=== PATIENT | male | born 1980 | race Caucasian/White ===

== ENCOUNTER 2018-11-18 21:25 | Emergency (ER) | payer OTHER, SELFPAY ==
[2018-11-18 21:14] VITALS: BP 149/88; PULSE 148; RESP 18; TEMP 36.4; O2SAT 94
--- NOTE | 2018-11-18 21:30 | DI.RAD.S_ITS ---
PROCEDURE: XR CHEST 1V INDICATIONS: status post CPR TECHNIQUE: One view of the chest was acquired. COMPARISON: None. FINDINGS: Surgical changes and devices: None. Lungs and pleura: Lungs are clear. No pleural effusions or pneumothorax. Mediastinum: Mediastinal contours appear normal. Heart size is normal. Bones and chest wall: No suspicious bony lesions. Overlying soft tissues appear unremarkable. IMPRESSION: No acute process. Dictated by: Carolyn Oneal M.D. on 11/18/2018 at 21:58 Approved by: Carolyn Oneal M.D. on 11/18/2018 at 21:58
--- NOTE | 2018-11-18 21:31 | ED.CPR ---
HPI - CPR General Chief Complaint: Cardiac Arrest/CPR Stated Complaint: Overdose Time Seen by Provider: 11/18/18 21:29 Source: patient and EMS Mode of arrival: EMS Limitations: no limitations History of Present Illness HPI narrative: 38-year-old male, daily smoker presents by EMS for evaluation of accidental overdose. Patient admits to snorting what he thought were Vicodin earlier and was found unresponsive and apneic. Patient proceeded to become pulseless and had bystander CPR briefly. He was given Narcan and nearly immediately woke up. Patient denies any other drugs or alcohol. He denies any cardiac history. He is awake, alert and oriented EN route. He was administered 1 extra dose of Narcan by EMS. Patient denies any suicidal or homicidal ideation MD complaint: found unresponsive and stopped breathing Timing confirmed by: other Place: home Bystander CPR performed: Yes AED applied by bystander/scenic artist: No Shock advised: No Initial findings in the field: unresponsive ROSC in the field: Yes Associated injuries: No Related Data Home Medications Medication Instructions Recorded Confirmed No Known Home Medications 11/18/18 11/18/18 Allergies Allergy/AdvReac Type Severity Reaction Status Date / Time Penicillins Allergy Unknown Verified 11/18/18 21:39 Review of Systems Constitutional Denies chills, Denies fever(s), Denies lethargy and Denies weakness Eyes Denies change in vision, Denies eye discharge, Denies irritation and Denies loss of vision ENT Ears, Nose, Mouth, and Throat: Denies change in voice, Denies neck pain and Denies sore throat Cardiovascular Denies chest pain, Denies irregular heart rhythm, Denies lightheadedness, Denies palpitations, Denies dyspnea, Denies dyspnea on exertion and Denies orthopnea Respiratory Denies cough, Denies dyspnea, Denies dyspnea on exertion and Denies wheezing Gastrointestinal Gastrointestinal: Denies abdominal pain, Denies change in bowel habits, Denies diarrhea, Denies nausea and Denies vomiting Genitourinary Denies hematuria, Denies flank pain, Denies urinary incontinence and Denies urinary urgency Musculoskeletal Denies neck pain Integumentary/Breasts Denies pruritus, Denies erythema, Denies rash and Denies wounds Neurologic Denies confusion, Denies loss of vision and Denies weakness Psychiatric Denies anxiety, Denies confusion, Denies depression, Denies homicidal ideation and Denies suicidal ideation Endocrine Denies palpitations Hematologic/Lymphatic Denies easy bruising Allergic/Immunologic Denies wheezing Exam Narrative Exam Narrative: GENERAL: 38-year-old male, tearful and obviously upset. Otherwise in no obvious distress HEAD: Atraumatic. Normocephalic. No temporal or scalp tenderness. EYES: Pupils equal round and reactive. Extraocular motions intact. No scleral icterus. No injection or drainage. ENT: Nose without bleeding, purulent drainage or septal hematoma. Throat without erythema, tonsillar hypertrophy or exudate. Uvula midline. Airway patent. NECK: Trachea midline. No JVD or lymphadenopathy. Supple, nontender, no meningeal signs. CARDIOVASCULAR: Regular rate and rhythm without murmurs, gallops, or rubs. Mild reproducible mid chest pain RESPIRATORY: Clear to auscultation. Breath sounds equal bilaterally. No wheezes, rales, or rhonchi. GASTROINTESTINAL: Abdomen soft, non-tender, nondistended. No hepato-splenomegaly, or palpable masses. No guarding. EXTREMITIES: No clubbing, cyanosis, or edema. No joint tenderness, effusion, or edema noted. BACK: Nontender without deformity or crepitance. No flank tenderness. NEURO: AOx3. SKIN: No rash or erythema. Initial Vital Signs Initial Vital Signs: Vital Signs Temperature 97.6 F 11/18/18 21:14 Pulse Rate 148 H 11/18/18 21:14 Respiratory Rate 18 11/18/18 21:14 Blood Pressure 149/88 H 11/18/18 21:14 Pulse Oximetry 94 11/18/18 21:14 [facility] Social History Smoking Status: Current every day smoker Social History Smoking Status: Current every day smoker Course Orders Ordered: ED Orders 11/18/18 21:27 Acetaminophen Stat Complete Blood Count AUTO DIFF Stat Comprehensive Metabolic Panel Stat Ethanol (ETOH) Stat Hepatic (Liver) Panel Stat Salicylate Stat Troponin & CK Cardiac Panel Stat 11/18/18 21:30 XR chest 1V Stat 11/18/18 21:52 EKG-12 Lead Stat 11/19/18 00:30 Urinalysis Sreen (Dip Only) Stat Urine Drug Screen, Rapid Stat Discontinued Medications Sodium Chloride (Normal Saline 0.9%) 1,000 mls @ 150 mls/hr IV CONT MOON Last Infusion: 11/19/18 02:00 Dose: 0 mls/hr Admin: 11/18/18 22:01 Dose: 150 mls/hr Ondansetron HCl (Zofran) 4 mg IV NOW ONE Stop: 11/18/18 22:00 Last Admin: 11/18/18 22:01 Dose: 4 mg Reevaluation(s) Reevaluation #1: Patient is here for multiple hours and no repeat doses of Narcan needed. He is awake, alert and oriented. He is remorseful and denies any suicidal ideation Vital Signs - 8 hr 11/18/18 21:46 11/18/18 22:26 11/18/18 23:29 Pulse Rate 90 89 75 Respiratory Rate 18 16 31 H Blood Pressure [Left Arm] 149/88 H 120/77 119/78 Pulse Oximetry 96 96 98 11/19/18 00:25 11/19/18 01:30 Pulse Rate 68 73 Respiratory Rate 16 15 Blood Pressure [Left Arm] 120/78 118/72 Pulse Oximetry 100 99 MDM - Cardiac Arrest/CPR Lab Data Result diagrams: 11/18/18 21:27 11/18/18 21:27 Lab Results 11/18/18 11/18/18 11/19/18 Range/Units 21:27 21:27 00:30 WBC 9.0 (4.5-11.0) X10^3/uL RBC 5.23 (4.5-5.9) X10^6/uL Hgb 16.8 (13.5-17.5) g/dL Hct 47.9 (41-53) % MCV 91.6 (80-100) fL MCH 32.2 (26-34) PG MCHC 35.1 (30-36) % RDW 12.7 (11.6-14.8) % Plt Count 248 (150-400) X10^3/uL Neut % (Auto) 35.7 L (50-75) % Lymph % (Auto) 55.4 H (25-40) % Gray % (Auto) 6.7 (3-14) % Eos % (Auto) 1.7 L (2-4) % Baso % (Auto) 0.5 (0-2) % Neut # (Auto) 3200 (3552-9123) /uL Lymph # (Auto) 5000 H (3475-4757) /uL Gray # (Auto) 600 (0-900) /uL Eos # (Auto) 200 (0-450) /uL Baso # (Auto) 0 (0-100) /uL Sodium 141 (137-145) mmol/L Potassium 4.0 (3.4-5.1) mmol/L Chloride 104 (98-107) mmol/L Carbon Dioxide 20 L (22-32) mmol/L BUN 18 (9-20) mg/dL Creatinine 1.10 (0.66-1.25) mg/dL Estimated GFR > 60.0 (>60) mL/min BUN/Creatinine Ratio 16.4 (6-22) Glucose 170 H (70-100) mg/dL Calcium 8.9 (8.4-10.2) mg/dL Total Bilirubin 0.5 (0.2-1.3) mg/dL Conjugated Bilirubin 0.0 (0.0-0.3) md/dL Unconjugated Bilirubin 0.2 (0.0-1.1) mg/dL AST 51 (17-59) IU/L ALT 52 (21-72) IU/L Alkaline Phosphatase 54 (38-126) U/L Total Creatine Kinase 43 L (55-170) U/L CK-MB (CK-2) TNP CK-MB (CK-2) Rel Index TNP Troponin I < 0.012 (0.01-0.034) ng/mL Total Protein 7.6 (6.3-8.2) g/dL Albumin 4.6 (3.5-5.0) g/dL Globulin 3.0 (1.7-4.1) g/dL Albumin/Globulin Ratio 1.5 (1.0-2.8) Urine Color Urine Appearance Urine pH (4.5-8.0) Ur Specific [place] (1.000-1.035) Urine Protein (Negative) Urine Glucose (UA) (Negative) g/dL Urine Ketones (NEGATIVE) Urine Occult Blood (Negative) Urine Nitrate (Negative) Urine Bilirubin (NEGATIVE) Urine Urobilinogen (0.2) E.U./dL Ur Leukocyte Esterase (NEGATIVE) Salicylates < 1.0 (<20) mg/dL Urine Opiates Screen Negative (Negative) Ur Oxycodone Screen Negative (Negative) Urine Methadone Screen Negative (Negative) Acetaminophen < 10 L (10-30) ug/mL Ur Barbiturates Screen Negative (Negative) U Tricyclic Antidepress Negative (Negative) Ur Phencyclidine Scrn Negative (Negative) Ur Amphetamines Screen Negative (Negative) U Methamphetamines Scrn Negative (Negative) Ur MDMA Scrn (Ecstasy) Negative (Negative) U Benzodiazepines Scrn Negative (Negative) Urine Cocaine Screen Negative (Negative) U Marijuana (THC) Screen Negative (Negative) Ethyl Alcohol 47 mg/dL 11/19/18 Range/Units 00:30 WBC (4.5-11.0) X10^3/uL RBC (4.5-5.9) X10^6/uL Hgb (13.5-17.5) g/dL Hct (41-53) % MCV (80-100) fL MCH (26-34) PG MCHC (30-36) % RDW (11.6-14.8) % Plt Count (150-400) X10^3/uL Neut % (Auto) (50-75) % Lymph % (Auto) (25-40) % Gray % (Auto) (3-14) % Eos % (Auto) (2-4) % Baso % (Auto) (0-2) % Neut # (Auto) (3198-1224) /uL Lymph # (Auto) (1799-6273) /uL Gray # (Auto) (0-900) /uL Eos # (Auto) (0-450) /uL Baso # (Auto) (0-100) /uL Sodium (137-145) mmol/L Potassium (3.4-5.1) mmol/L Chloride (98-107) mmol/L Carbon Dioxide (22-32) mmol/L BUN (9-20) mg/dL Creatinine (0.66-1.25) mg/dL Estimated GFR (>60) mL/min BUN/Creatinine Ratio (6-22) Glucose (70-100) mg/dL Calcium (8.4-10.2) mg/dL Total Bilirubin (0.2-1.3) mg/dL Conjugated Bilirubin (0.0-0.3) md/dL Unconjugated Bilirubin (0.0-1.1) mg/dL AST (17-59) IU/L ALT (21-72) IU/L Alkaline Phosphatase (38-126) U/L Total Creatine Kinase (55-170) U/L CK-MB (CK-2) CK-MB (CK-2) Rel Index Troponin I (0.01-0.034) ng/mL Total Protein (6.3-8.2) g/dL Albumin (3.5-5.0) g/dL Globulin (1.7-4.1) g/dL Albumin/Globulin Ratio (1.0-2.8) Urine Color Yellow Urine Appearance Clear Urine pH 5.0 (4.5-8.0) Ur Specific [place] >=1.030 H (1.000-1.035) Urine Protein 2+ H (Negative) Urine Glucose (UA) Negative (Negative) g/dL Urine Ketones Negative (NEGATIVE) Urine Occult Blood 1+ H (Negative) Urine Nitrate Negative (Negative) Urine Bilirubin Negative (NEGATIVE) Urine Urobilinogen 0.2 (0.2) E.U./dL Ur Leukocyte Esterase Negative (NEGATIVE) Salicylates (<20) mg/dL Urine Opiates Screen (Negative) Ur Oxycodone Screen (Negative) Urine Methadone Screen (Negative) Acetaminophen (10-30) ug/mL Ur Barbiturates Screen (Negative) U Tricyclic Antidepress (Negative) Ur Phencyclidine Scrn (Negative) Ur Amphetamines Screen (Negative) U Methamphetamines Scrn (Negative) Ur MDMA Scrn (Ecstasy) (Negative) U Benzodiazepines Scrn (Negative) Urine Cocaine Screen (Negative) U Marijuana (THC) Screen (Negative) Ethyl Alcohol mg/dL ECG Data Attestation: I personally reviewed and interpreted this ECG as follows: Prior ECG tracings: not available for review MDM Narrative Medical decision making narrative: Multiple etiologies for patient's symptoms considered including: [Accidental overdose by opioid. Rapid drug screen was negative but it is certainly likely that the patient obtained non pharmaceutical, perhaps fentanyl, medication] Patient's symptoms improved or duration of stay with above-stated therapies. Findings and discharge diagnosis discussed with patient/family followed by verbalization of understanding Return precautions discussed with patient/family whom verbalize understanding. Discharge Plan Departure Patient Disposition: Home Clinical Impression: Opioid overdose Discharge Date/Time: 11/19/18 02:00 Interventions: ED Discharge Assessment Last Done: 11/19/18 01:55 Instructions: DI for Prescription Opioid Use Activity Restrictions/Additional Instructions: *You have been diagnosed with [ accidental opioid overdose ] *What to do: * continue to take medications as directed *Follow up with your primary care provider in 2-3 days, call for an appointment. Let them know you were seen in the Emergency Department and that we ask that you be seen in follow up *Return to ER if you should have any new, worsening or concerning symptoms Prescriptions: No Action No Known Home Medications RF: 0 Referrals: [facility] [Outside] Tenzin Haq MD [Primary Care Provider] -
[2018-11-18 21:38] LABS: Add Manual Diff / Slide Review NO; Basophils Absolute Auto 0 /uL (0-100); Basophils Percent Auto 0.5 % (0-2); Eosinophils Absolute Auto 200 /uL (0-450); Eosinophils Percent Auto 1.7 % (2-4); Hematocrit 47.9 % (41-53); Hemoglobin 16.8 g/dL (13.5-17.5); Lymphocytes Absolute Auto 5000 /uL (1100-4500); Lymphocytes Percent Auto 55.4 % (25-40); Mean Corpuscular HGB Conc 35.1 % (30-36); Mean Corpuscular Hemoglobin 32.2 PG (26-34); Mean Corpuscular Volume 91.6 fL (80-100); Monocytes Absolute Auto 600 /uL (0-900); Monocytes Percent Auto 6.7 % (3-14); Neutrophils Absolute Auto 3200 /uL (1500-7000); Neutrophils Percent Auto 35.7 % (50-75); Platelet Count 248 X10^3/uL (150-400); Red Blood Cell Count 5.23 X10^6/uL (4.5-5.9); Red Cell Distribution Width 12.7 % (11.6-14.8)
[2018-11-18 21:46] VITALS: BP 149/88; PULSE 90; RESP 18; O2SAT 96
[2018-11-18 21:50] LABS: Alanine Aminotransferase 52 IU/L (21-72); Albumin 4.6 g/dL (3.5-5.0); Albumin Globulin Ratio 1.5 (1.0-2.8); Alkaline Phosphatase 54 U/L (38-126); Aspartate Aminotransferase 51 IU/L (17-59); BUN Creatinine Ratio 16.4 (6-22); Bilirubin Total 0.5 mg/dL (0.2-1.3); Bilirubin Unconjugated 0.2 mg/dL (0.0-1.1); Blood Urea Nitrogen 18 mg/dL (9-20); Calcium 8.9 mg/dL (8.4-10.2); Carbon Dioxide 20 mmol/L (22-32); Chloride 104 mmol/L (98-107); Creatine Kinase 43 U/L (55-170); Estimated Glomerular Filt Rate > 60.0 mL/min (>60); Glucose 170 mg/dL (70-100); Sodium 141 mmol/L (137-145); Total Protein 7.6 g/dL (6.3-8.2)
[2018-11-18 21:51] LABS: HEMOLYSIS 62 (0-50)
[2018-11-18] MEDS: SODIUM CHLORIDE 0.9% 1,000 ML 150 ML IV (22:01)
[2018-11-18] MEDS: ONDANSETRON 4 MG/2 ML INJ IV (22:01)
[2018-11-18 22:07] LABS: Troponin I < 0.012 ng/mL (0.01-0.034)
[2018-11-18 22:15] LABS: Acetaminophen < 10 ug/mL (10-30); Ethanol (ETOH) 47 mg/dL
[2018-11-18 22:16] LABS: Salicylate < 1.0 mg/dL (<20)
[2018-11-18 22:26] VITALS: BP 120/77; PULSE 89; RESP 16; O2SAT 96
[2018-11-18 23:29] VITALS: BP 119/78; PULSE 75; RESP 31; O2SAT 98
[2018-11-19 00:25] VITALS: BP 120/78; PULSE 68; RESP 16; O2SAT 100
[2018-11-19 00:39] LABS: Appearance Urine UA CLEAR; Bilirubin Urine UA NEGATIVE (NEGATIVE); Color Urine UA YELLOW; Glucose Urine UA NEGATIVE (Negative); Ketones Urine UA NEGATIVE (NEGATIVE); Leukocyte Esterase Urine UA NEGATIVE (NEGATIVE); Nitrite Urine UA NEGATIVE (Negative); Occult Blood Urine UA 1+ (Negative); Protein Urine UA 2+ (Negative); Specific Gravity Urine UA >=1.030 (1.000-1.035); Urobilinogen Urine UA 0.2 E.U./dL (0.2)
[2018-11-19 00:44] LABS: Urine Amphetamines Negative (Negative); Urine Barbiturates Negative (Negative); Urine Benzodiazepines Negative (Negative); Urine Cocaine Negative (Negative); Urine MDMA Negative (Negative); Urine Methadone Negative (Negative); Urine Methamphetamines Negative (Negative); Urine Morphine/Opi cutoff 2000 Negative (Negative); Urine Oxycodone Negative (Negative); Urine Phencyclidine Negative (Negative); Urine Tetrahydrocannabinol Negative (Negative); Urine Tricyclic Antidepressant Negative (Negative)
[2018-11-19 01:30] VITALS: BP 118/72; PULSE 73; RESP 15; O2SAT 99
== END 2018-11-19 02:00 | disposition home or self-care (01) ==
PROVIDERS: Emergency Provider Emergency Medicine; Family Provider Family Medicine; PCP Family Medicine
DX: T40.2X1A Poisoning by other opioids, accidental (unintentional), initial encounter (principal)
CPT/HCPCS: 71045; 80053; 80076; 80305; 80320; 80329; 81003; 82550; 84484; 85025; 93005; 96361; 96374; 99284; 99285; 99291; G0480; J2405

== ENCOUNTER → 2025-07-12 17:12 | Outpatient (CLI) | payer SELFPAY ==
--- NOTE | 2025-07-12 17:22 | DI.MRI.S_ITS ---
PROCEDURE: MR SHOULDER RT WO CON INDICATIONS: PAIN TECHNIQUE: Noncontrast oblique coronal T2 fast spin echo with fat saturation, oblique sagittal T1 spin echo and T2 fast spin echo with fat saturation, axial T1 spin echo and T2 fast spin echo with fat saturation through the shoulder. COMPARISON: None. FINDINGS: Image quality: Excellent. Some images are limited by patient motion, pulsation or other artifacts Rotator cuff: T2 weighted signal and thickening of the distal subscapularis tendon mild tendinopathy without tear or retraction. Mild increased T2 weighted signal and thickening of the mid and distal supraspinatus mild tendinopathy. Infraspinatus is normal. Teres minor is normal. No muscular fatty atrophy. Moderate degenerative changes of the acromioclavicular joint with joint space narrowing, osteophytes, subchondral edema capsular hypertrophy. Type 2 laterally downsloping acromion with mildly decreased subacromial space measures approximately 8 mm at its narrowest. Degenerative changes of the glenohumeral joint with diffuse cartilaginous thinning of the humeral head and glenoid, some irregularity of the superior glenoid from approximately 11 o'clock to 2 o'clock position some of which suspicious for SLAP tear. Bones and bursae: No MR and evidence of fracture line or dislocation. No significant glenohumeral joint effusion or abnormal bursal fluid. Deltoid is normal Capsule and soft tissues: Biceps tendon is located within the biceps groove. Mild increased T2 weighted signal, tendinopathy of the biceps anchor. IMPRESSION: Mild tendinopathy distal subscapularis and supraspinatus. Degenerative changes as discussed above. Signal changes of the labrum degenerative versus SLAP tear. Dictated by: Enzo Garcia M.D. on 07/14/2025 at 23:31 Approved by: Enzo Garcia M.D. on 07/14/2025 at 23:37
== END ==
LOC: MRI 17:17
PROVIDERS: Referring Provider Nurse Practitioner; Visit Provider Nurse Practitioner
DX: M25.511 Pain in right shoulder (principal)
CPT/HCPCS: 73221